=== PATIENT | female | born 1945 | race Caucasian/White ===

== ENCOUNTER 2016-09-11 07:21 | Emergency (ER) | payer MEDICARE, OTHER | END 2016-09-11 12:37 | disposition home or self-care (01) | LOC: FER 07:21 | DX: I10 Essential (primary) hypertension (principal); F41.9 Anxiety disorder, unspecified; R51 Headache; K21.9 Gastro-esophageal reflux disease without esophagitis; E03.9 Hypothyroidism, unspecified; Z88.2 Allergy status to sulfonamides; Z88.5 Allergy status to narcotic agent; Z79.82 Long term (current) use of aspirin; Z79.899 Other long term (current) drug therapy | CPT/HCPCS: 36415; 70450; 84484; 93005 ==